=== PATIENT | female | born 1975 | race Caucasian/White ===

== ENCOUNTER → 2020-11-17 | Outpatient (CLI) | payer OTHER ==
[~2020-11-17] MED LIST: IBUP800 PO; OXYACE5T PO; Verotin-Gr Cap1 EACH PO
[2020-11-19 17:11] LABS: HPV 16 Negative (Negative); HPV 18 Negative (Negative); HPV OTHER HR TYPES Negative (Negative)
== END ==
LOC: LAB SHORT 17:46 → LAB 17:46
PROVIDERS: Family Medicine
DX: Z01.419 Encounter for gynecological examination (general) (routine) without abnormal findings (principal)
CPT/HCPCS: 87624; G0123

== ENCOUNTER 2022-08-17 12:03 | Emergency (ER) | payer OTHER ==
[~2022-08-17] VITALS: Ht 175.3 cm; Wt 63.0 kg
[2022-08-17 14:45] VITALS: BP 118/62
== END 2022-08-17 14:56 | disposition home or self-care (01) ==
LOC: ER 12:03
DX: L76.33 Postprocedural seroma of skin and subcutaneous tissue following a dermatologic procedure (principal); Z85.3 Personal history of malignant neoplasm of breast
CPT/HCPCS: 10160; 99283-25

== ENCOUNTER 2022-12-14 14:54 | Emergency (ER) | payer OTHER ==
[~2022-12-14] VITALS: Ht 175.3 cm; Wt 65.8 kg
[2022-12-14 20:20] VITALS: BP 113/68
== END 2022-12-14 20:24 | disposition home or self-care (01) ==
LOC: ER 14:54
DX: M96.843 Postprocedural seroma of a musculoskeletal structure following other procedure (principal); N63.21 Unspecified lump in the left breast, upper outer quadrant; Z90.12 Acquired absence of left breast and nipple
CPT/HCPCS: 76604; 99283-25

== ENCOUNTER → 2022-12-15 | Outpatient (CLI) | payer OTHER | LOC: LAB SHORT 16:30 | DX: N61.1 Abscess of the breast and nipple (principal) | CPT/HCPCS: 87070; 87205 ==

== ENCOUNTER 2023-01-04 14:25 | Emergency (ER) | payer OTHER ==
[~2023-01-04] VITALS: Ht 175.3 cm; Wt 65.8 kg
[2023-01-04 14:41] VITALS: BP 133/64
== END 2023-01-04 17:45 | disposition home or self-care (01) ==
LOC: ER 14:25
DX: N64.89 Other specified disorders of breast (principal); Z85.3 Personal history of malignant neoplasm of breast
CPT/HCPCS: 10160; 99283-25

== ENCOUNTER → 2024-06-21 | Outpatient (CLI) | payer OTHER ==
[2024-06-27 14:37] LABS: HPV HIGH RISK BY TMA Not Detected; HPV SOURCE Cervical/Vag
== END | disposition home or self-care (01) ==
LOC: LAB 18:15 → LAB SHORT 18:15
PROVIDERS: Family Medicine
DX: Z01.419 Encounter for gynecological examination (general) (routine) without abnormal findings (principal)
CPT/HCPCS: 87624; G0123

== ENCOUNTER 2024-11-14 11:41 | Day surgery (SDC) | payer OTHER ==
[~2024-11-14] VITALS: Ht 175.3 cm; Wt 66.9 kg
[~2024-11-14 11:41] MED LIST changes: +Glycopyrrolate 0.2 MG/ML 1MLVIAL ONE; +Ondansetron HCl 2 MG / ML 2ML Vial ONE
[2024-11-14 14:00] VITALS: BP 112/64
== END 2024-11-14 14:00 | disposition home or self-care (01) ==
LOC: ORSCSDS 11:41
PROVIDERS: Surgery
PROC: 0DJD8ZZ Inspection of Lower Intestinal Tract, Via Natural or Artificial Opening Endoscopic (ICD-10-PCS; principal; 2024-11-14 13:00)
DX: Z12.11 Encounter for screening for malignant neoplasm of colon (principal); F41.9 Anxiety disorder, unspecified; E78.5 Hyperlipidemia, unspecified
CPT/HCPCS: J2003; J2405; J2704; J7120